=== PATIENT | male | born 1995 | race Caucasian/White ===

== ENCOUNTER 2019-08-12 15:00 | Outpatient (CLI) | payer OTHER ==
[2019-08-12] MEDS ORDERED: OMNIPAQUE 350 MG/ML, 100ML BOTTLE ONE (16:45)
== END 2019-08-12 23:59 | disposition home or self-care (01) ==
LOC: RAD 15:00
PROVIDERS: ATTEND Family Medicine
DX: K44.9 Diaphragmatic hernia without obstruction or gangrene (principal); K76.0 Fatty (change of) liver, not elsewhere classified; Q53.112 Unilateral inguinal testis; R10.31 Right lower quadrant pain; I86.1 Scrotal varices; N43.2 Other hydrocele
CPT/HCPCS: 74177; 76870; Q9967

== ENCOUNTER 2019-08-18 13:25 | Emergency (ER) | payer OTHER ==
[~2019-08-18] VITALS: Ht 170.2 cm; Wt 77.8 kg
--- NOTE | 2019-08-18 13:55 | NUR ---
LOKESH COLLECTED AND SENT FORM LOBBY
[2019-08-18 14:15] LABS: MICROSCOPIC NOT IND
[2019-08-18 14:20] LABS: CULTURE INDICATED? NO
[2019-08-18 14:21] LABS: BASOPHILS # (AUTO) 0.09 x10^3/uL (0-0.1); BASOPHILS % (AUTO) 1 % (0-1); EOSINOPHILS # (AUTO) 0.18 x10^3/uL (0-0.4); EOSINOPHILS % (AUTO) 2 % (1-7); LYMPHOCYTES # (AUTO) 2.39 x10^3/uL (1-3.4); LYMPHOCYTES % (AUTO) 21 % (22-44); MD NO; MEAN CORPUSCULAR HEMOGLOBIN 28.6 pg (27.5-34.5); MEAN CORPUSCULAR HGB CONC 32.9 g/dL (33.2-36.2); MEAN CORPUSCULAR VOLUME 86.9 fL (81-97); MEAN PLATELET VOLUME 9.5 fL (7.4-10.4); MONOCYTES # (AUTO) 1.11 x10^3/uL (0.2-0.8); MONOCYTES % (AUTO) 10 % (2-9); NEUTROPHILS # (AUTO) 7.81 x10^3/uL (1.8-6.8); NEUTROPHILS % (AUTO) 68 % (42-75); PLATELET COUNT 248 x10^3/uL (130-400); RED BLOOD COUNT 6.33 x10^6/uL (4.38-5.82)
[2019-08-18 14:31] LABS: ALBUMIN 4.2 g/dL (3.4-5.0); ANION GAP 7 mmol/L (5-15); CALCIUM 9.4 mg/dL (8.5-10.1); CHLORIDE 103 mmol/L (98-107)
[2019-08-18 14:35] LABS: ALANINE AMINOTRANSFERASE 80 U/L (12-78); ALKALINE PHOSPHATASE 86 U/L (45-117); BILIRUBIN,TOTAL 0.9 mg/dL (0.2-1.0); CREATININE 1.14 mg/dL (0.7-1.3); TOTAL PROTEIN 8.1 g/dL (6.4-8.2)
[2019-08-18] MEDS ORDERED: HYDROcodone/APAP 5/325 TABLET ONE (17:26)
[2019-08-18] MEDS ORDERED: HYDROcodone/APAP 5/325 TABLET PO ONE (17:30)
[2019-08-18 17:38] VITALS: BP 120/74
== END 2019-08-18 17:40 | disposition home or self-care (01) ==
LOC: ED 17:30
DX: N50.811 Right testicular pain (principal)
CPT/HCPCS: 36415; 76870; 80053; 81003; 85025; 99284